=== PATIENT | female | born 1990 | race Caucasian/White ===

== ENCOUNTER 2016-12-17 00:25 | Emergency (ER) | payer OTHER ==
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
[2016-12-17] MEDS ORDERED: MORPHINE 2 MG/ML SYRINGE IVP STA (01:29)
[2016-12-17] MEDS ORDERED: MORPHINE 2 MG/ML SYRINGE ONE (01:37)
--- NOTE | 2016-12-17 02:56 | CT Preliminary Report ---
Exam: CT Facial Bones W/O IMPRESSION: Anterior dislocation of the left mandibular head. There is a questionable hairline fractu re of the mandibular head. Right mandibular head is in normal position. [facility] SITE ID: [id number]
--- NOTE | 2016-12-17 02:59 | CT Report ---
EXAM: CT MAXILLOFACIAL WITHOUT CONTRAST EXAM DATE: 12/17/2016 02:19 AM. CLINICAL HISTORY: Mandible injury, jaw is locked open. COMPARISONS: None. TECHNIQUE: Thin-section axial images were acquired of the face without contrast. Post-processing: Cor onal and sagittal reformats. Other: None. In accordance with CT protocol optimization, one or more of the following dose reduction techniques w ere utilized for this exam: automated exposure control, adjustment of mA and/or KV based on patient s ize, or use of iterative reconstructive technique. FINDINGS: Bones: See below Temporomandibular Joints: Anterior dislocation of the left mandibular head. No displaced fracture is identified. There is a questionable nondisplaced fracture in the mandibular head, this is seen on ser ies 7 image 29. This is not a definite finding. Right mandibular head is in normal position. Sinuses: Mucosal retention cyst within the left maxillary antrum. No evidence of active sinusitis. Other: None. IMPRESSION: Anterior dislocation of the left mandibular head. There is a questionable hairline fractu re of the mandibular head. Right mandibular head is in normal position. [facility] Referring Provider Line: [phone] SITE ID: [id number]
[2016-12-17] MEDS ORDERED: PROPOFOL 200 MG/20 ML VIAL IVP STA (03:33)
[2016-12-17] MEDS ORDERED: SODIUM CHLORIDE 0.9% 1,000 ML IV STA (03:34)
[2016-12-17] MEDS ORDERED: PROPOFOL 200 MG/20 ML VIAL IVP ONE (03:35)
--- NOTE | 2016-12-17 05:22 | XRAY Preliminary Report ---
Exam: XR TMJs-Temporal Mandibular Jts IMPRESSION: There is a cortical step-off projecting over the left mandible condyle. A fracture of the left mandibular condyle cannot be excluded with certainty. No evidence of dislocation. [facility] SITE ID: [id number]
--- NOTE | 2016-12-17 05:24 | XRAY Report ---
EXAM: BILATERAL TEMPOROMANDIBULAR JOINT RADIOGRAPHY EXAM DATE: 12/17/2016 04:53 AM. CLINICAL HISTORY: Post-reduction left TMJ dislocation. COMPARISON: None. TECHNIQUE: 3 views including open and closed mouth. FINDINGS: Bones: Slight cortical step-off projecting over the left millimeter condyle. Temporomandibular Joints: As visualized, normal articulation. Sinuses: Without significant opacification. Other: No significant soft tissue swelling demonstrated. IMPRESSION: There is a cortical step-off projecting over the left mandible condyle. A fracture of the left mandibular condyle cannot be excluded with certainty. No evidence of dislocation. [facility] Referring Provider Line: [phone] SITE ID: [id number]
[2016-12-17 06:37] VITALS: BP 122/69
== END 2016-12-17 06:37 | disposition home or self-care (01) ==
LOC: ED 00:25
DX: S03.02XA Dislocation of jaw, left side, initial encounter (principal); S02.609A Fracture of mandible, unspecified, initial encounter for closed fracture; W50.0XXA Accidental hit or strike by another person, initial encounter
CPT/HCPCS: 70330; 70486; 96374; 99283

== ENCOUNTER 2017-10-18 01:21 | Outpatient (CLI) | payer OTHER | END 2017-10-18 01:22 | disposition critical access hospital (66) | LOC: EMS 01:21 | PROVIDERS: ATTEND Surgery | DX: R06.00 Dyspnea, unspecified (principal); R05 Cough; R07.9 Chest pain, unspecified | CPT/HCPCS: A0425; A0427 ==

== ENCOUNTER 2017-10-18 01:41 | Emergency (ER) | payer OTHER ==
[2017-10-18] MEDS ORDERED: methylPREDNISolone SUCCINATE 125 MG/2 ML VIAL IVP STA (02:01)
--- NOTE | 2017-10-18 02:01 | ED Physician Documentation ---
PD HPI DYSPNEA - Stated complaint Stated Complaint: COUGH, SOB - Chief complaint Chief Complaint: Resp - History obtained from History obtained from: Patient, EMS - History of Present Illness Timing - onset: How many days ago (3) Timing - details: Gradual onset, Still present Inciting event(s): URI. No: Out of meds Improved by: O2, Inhaler/neb Worsened by: Exertion Associated symptoms: Cough, Wheezing Similar symptoms before: Has not had sx before Recently seen: Not recently seen - Additional information Additional information: patient is a 27 year old female with no significant past medical history who is presenting to the emergency department for shortness of breath. According to patient and ems patient has been feeling unwell for the last three days and has become progressively worse. patient states that she has had wheezing and a productive cough, but she has no history of asthma. Patient states that she thinks her grandmother had a blood clot. Review of Systems Constitutional: denies: Fever Nose: reports: Congestion Throat: denies: Sore throat Cardiac: reports: Chest pain / pressure. denies: Calf pain Respiratory: reports: Dyspnea, Cough, Wheezing GI: denies: Nausea, Vomiting Musculoskeletal: denies: Extremity swelling Neurologic: denies: Near syncope, Syncope Immunocompromised: denies: Immunocompromised PD PAST MEDICAL HISTORY - Past Medical History Past Medical History: No Cardiovascular: None Respiratory: None Neuro: None Endocrine/Autoimmune: None GI: None EMERGENCY MANAGEMENT SYSTEM DIRECTOR: None : None HEENT: None Psych: None Musculoskeletal: None Derm: None - Past Surgical History Past Surgical History: No HEENT: Tonsil/Adenoidectomy, Other - Present Medications Home Medications: Ambulatory Orders Medication Instructions Recorded Confirmed Albuterol Sulfate [Proventil Hfa 1 - 2 puffs INH Q4H PRN #1 inhaler 10/18/17 Inhaler] predniSONE [Prednisone] 40 mg PO DAILY 5 Days tablet 10/18/17 - Allergies Allergies/Adverse Reactions: Allergies Allergy/AdvReac Type Severity Reaction Status Date / Time codeine AdvReac Hives Verified 10/18/17 01:48 chlorprep AdvReac Hives Uncoded 10/18/17 01:49 - Social History Does the pt smoke?: No Smoking Status: Never smoker Does the pt drink ETOH?: No Does the pt have substance abuse?: No - Immunizations Immunizations are current?: Yes - POLST Patient has POLST: No PD ED PE NORMAL - Vitals Vital signs reviewed: Yes - General General: Alert and oriented X 3 - HEENT HEENT: Atraumatic - Neck Neck: No JVD - Abdomen Abdomen: Soft, Non tender, Non distended - Derm Derm: Normal color, Warm and dry, No rash - Extremities Extremities: Normal ROM s pain, No calf tenderness / cord - Neuro Neuro: Alert and oriented X 3, No motor deficit Eye Opening: Spontaneous Motor: Obeys Commands Verbal: Oriented GCS Score: 15 PD ED PE EXPANDED - General General: Alert - Cardiac Cardiac: Tachy - Respiratory Respiratory: Labored - Abdomen Abdomen: No: Tender to palpation Results - Vitals Vitals: Vital Signs - 24 hr 10/18/17 10/18/17 01:46 03:31 Temperature 36.6 C Heart Rate 122 H 96 Respiratory 22 Rate Blood Pressure 99/69 O2 Saturation 100 97 Oxygen O2 Source Room air - EKG (time done) 0151 Rate: Rate (enter#) (116) Rhythm: Sinus tachycardia Marissa: Normal Ischemia: T wave inversion, Non specific changes Compare to prior EKG: Old EKG unavailable - Labs Labs: Laboratory Tests 10/18/17 10/18/17 10/18/17 02:11 02:11 02:11 WBC 7.9 RBC 4.80 Hgb 13.1 Hct 39.0 MCV 81.3 MCH 27.3 MCHC 33.6 RDW 13.2 Plt Count 274 MPV 7.0 L Neut # 5.8 Lymph # 1.2 L [place] # 0.6 Eos # 0.0 Baso # 0.3 H Absolute Nucleated RBC 0.01 Nucleated RBC % 0.1 D-Dimer 569.0 H Sodium 138 Potassium 3.0 L Chloride 108 Carbon Dioxide 21 Anion Gap 9.0 BUN 9 Creatinine 0.8 Estimated GFR (MDRD) 87 L Glucose 135 H Calcium 8.4 L Total Bilirubin 0.6 AST 21 ALT 18 Alkaline Phosphatase 77 Troponin I Total Protein 7.4 Albumin 4.1 Globulin 3.3 Albumin/Globulin Ratio 1.2 Lipase 27 10/18/17 02:11 WBC RBC Hgb Hct MCV MCH MCHC RDW Plt Count MPV Neut # Lymph # [place] # Eos # Baso # Absolute Nucleated RBC Nucleated RBC % D-Dimer Sodium Potassium Chloride Carbon Dioxide Anion Gap BUN Creatinine Estimated GFR (MDRD) Glucose Calcium Total Bilirubin AST ALT Alkaline Phosphatase Troponin I < 0.04 Total Protein Albumin Globulin Albumin/Globulin Ratio Lipase - Rads (name of study) chest x-ray Radiology: Final report received (normal) ct angio Radiology: Final report received (poor timing but no large PE appreciated ) PD MEDICAL DECISION MAKING - ED course Complexity details: reviewed old records, reviewed results, re-evaluated patient , considered differential, d/w patient ED course: Patient was seen and examined at bedside. IV access was gained and labs were drawn. ekg was performed and was sinus tach. chest x-ray was ordered and was within normal limits. patient was treated with solumedrol. Patient's d-dimer was slightly elevated so CT angio was ordered. Patient's tachycardia and hypoxia resolved. CT angio was poor timing but there were no large PEs appreciated. Patient's wheezing had resolved with the treatments and PE was unlikely. Patient was given detailed discharge and follow up instructions. patient required no further work up and was stable for discharge with outpatient follow up. Departure - Departure Disposition: 01 Home, Self Care Clinical Impression: Reactive airway disease that is not asthma Condition: Good Instructions: ED Reactive Airway Disease Follow-Up: DAVIAN HERNANDEZ [Primary Care Provider] - Tomorrow Prescriptions: Albuterol Sulfate [Proventil Hfa Inhaler] 1 - 2 puffs INH Q4H PRN #1 inhaler PRN Reason: Shortness Of Air/Wheezing predniSONE [Prednisone] 40 mg PO DAILY 5 Days tablet Comments: Your diagnostics today were within normal limits. Your symptoms are likely a reaction to change in season or pollen etc. You will be on steroids for the next 5 days and you have been prescribed an inhaler. You should follow up with your doctor this week for re-evaluation. You may return to the emergency department at any time for new, worsening or uncontrollable symptoms.
[2017-10-18] MEDS ORDERED: ONDANSETRON 4 MG/2 ML VIAL IVP STA (02:17)
[2017-10-18 02:21] LABS: BASOPHILS # (AUTO) 0.3 10^3/uL (0.0-0.1); BASOPHILS % (AUTO) 3.5 %; EOSINOPHILS % (AUTO) 0.5 %; HGB - HEMOGLOBIN 13.1 g/dL (12.0-16.0); LYMPHOCYTES # (AUTO) 1.2 10^3/uL (1.5-3.5); MEAN CORPUSCULAR HEMOGLOBIN 27.3 pg (27.0-31.0); MEAN CORPUSCULAR HGB CONC 33.6 g/dL (32.0-36.0); MEAN CORPUSCULAR VOLUME 81.3 fL (81.0-99.0); MONOCYTES # (AUTO) 0.6 10^3/uL (0.0-1.0); MONOCYTES % (AUTO) 8.2 %; NEUTROPHILS # (AUTO) 5.8 10^3/uL (1.5-6.6); NEUTROPHILS % (AUTO) 72.8 %; PLT - PLATELET COUNT 274 10^3/uL (130-450); RED CELL DISTRIBUTION WIDTH 13.2 % (12.0-15.0); WHITE BLOOD COUNT 7.9 x10^3/uL (4.8-10.8)
[2017-10-18 02:28] LABS: ALBUMIN 4.1 g/dL (3.2-5.5); ALBUMIN/GLOBULIN RATIO 1.2 (1.0-2.2); BILIRUBIN,TOTAL 0.6 mg/dL (0.2-1.0); CALCIUM 8.4 mg/dL (8.5-10.3); CREATININE 0.8 mg/dL (0.4-1.0); TOTAL PROTEIN 7.4 g/dL (6.7-8.2)
[2017-10-18] MEDS ORDERED: POTASSIUM BICARB 25 MEQ TABLET PO STA (02:36)
[2017-10-18] MEDS ORDERED: IOPAMIDOL-300 100 ML VIAL ONE (02:55)
--- NOTE | 2017-10-18 03:05 | XRAY Report ---
EXAM: CHEST RADIOGRAPHY EXAM DATE: 10/18/2017 02:33 AM. CLINICAL HISTORY: Cough and shortness of breath for 2-3 days COMPARISON: None. TECHNIQUE: 2 views. FINDINGS: Lungs/Pleura: No focal opacities evident. No pleural effusion. No pneumothorax. Normal volumes. Mediastinum: Heart and mediastinal contours are unremarkable. Other: None. IMPRESSION: Normal 2-view chest radiography. [facility] Referring Provider Line: [phone] SITE ID: [id number]
[2017-10-18] MEDS ORDERED: IOPAMIDOL-300 100 ML VIAL IVP ONE (03:13)
--- NOTE | 2017-10-18 03:51 | CT Report ---
EXAM: CT ANGIOGRAM CHEST EXAM DATE: 10/18/2017 03:13 AM. CLINICAL HISTORY: Dyspnea, elevated dimer. COMPARISON: None. TECHNIQUE: Routine helical imaging was performed through the chest in the pulmonary arterial phase. I V Contrast: 80ML ISOVUE 300. Reconstructions: Coronal 3-D MIP reconstructions.Sagittal and coronal. In accordance with CT protocol optimization, one or more of the following dose reduction techniques w ere utilized for this exam: automated exposure control, adjustment of mA and/or KV based on patient s ize, or use of iterative reconstructive technique. FINDINGS: Pulmonary Arteries: Contrast timing is delayed so that the pulmonary arteries are suboptimally opaci fied. No main or lobar embolism demonstrated. Lungs and Pleura: No significant consolidation. Central Airways: Visualized central airways are without suspicious filling defects. Chest Wall: No significant abnormality. Thyroid: No significant abnormality. Mediastinum: Thymic tissue noted within the anterior mediastinum. No significant abnormality. Heart: Normal in size. No significant pericardial effusion. Aorta: Normal caliber. Upper Abdomen: No significant abnormality. Bones: No suspicious bony lesions evident. IMPRESSION: 1. Contrast timing is delayed so that the pulmonary arteries are suboptimally opacified. This is esse ntially nondiagnostic in terms of assessment for pulmonary embolism. No main or lobar embolism demons trated. 2. Normal caliber aorta. 3. Lungs are clear. [facility] Referring Provider Line: [phone] SITE ID: [id number]
--- NOTE | 2017-10-18 03:51 | CT Preliminary Report ---
Exam: CT CHEST ANGIO (PE) IMPRESSION: 1. Contrast timing is delayed so that the pulmonary arteries are suboptimally opacified. This is esse ntially nondiagnostic in terms of assessment for pulmonary embolism. No main or lobar embolism demons trated. 2. Normal caliber aorta. 3. Lungs are clear. [facility] SITE ID: [id number]
[2017-10-18 04:11] VITALS: BP 109/74
== END 2017-10-18 04:17 | disposition home or self-care (01) ==
LOC: EDUNIT# → ED 01:41
DX: J98.9 Respiratory disorder, unspecified (principal)
CPT/HCPCS: 36415; 71046; 71275; 80053; 83690; 84484; 85025; 85379; 93005; 96374; 96375; 99283; A9270; Q9967